=== PATIENT | female | born 1970 | race Caucasian/White ===

== ENCOUNTER → 2020-09-02 10:01 | Outpatient (CLI) | payer BC, SELFPAY ==
--- NOTE | ~2020-09-02 | XR_ITS ---
XR chest 2V DATE: 09/02/2020 10:16 INDICATION: Chest pain TECHNIQUE: PA and lateral views COMPARISON: 03/21/2018 PA and lateral chest FINDINGS: There is bilateral hyperinflation. No pulmonary infiltrate or consolidation, pleural effusi on or pulmonary vascular congestion or pneumothorax. Heart size is normal. No hilar or mediastinal en largement. Included skeletal structures are unremarkable. IMPRESSION: Bilateral hyperinflation; no active cardiopulmonary disease Reviewed, dictated and finalized at location A.
== END ==
PROVIDERS: PCP Family Medicine; Visit Provider Physician Assistant
DX: R07.9 Chest pain, unspecified (principal); R91.8 Other nonspecific abnormal finding of lung field
CPT/HCPCS: 71046

== ENCOUNTER 2020-10-21 07:59 | Outpatient (CLI) | payer BC, SELFPAY ==
--- NOTE | ~2020-10-21 | MM_ITS ---
EXAMINATION: MM screening [facility] BI w [facility] HISTORY: Screening mammogram TECHNIQUE: Craniocaudal and mediolateral oblique 3-D tomosynthesis images were obtained and synthetic 2-D images were generated. CAD analysis was submitted and interpreted. COMPARISON: 04/22/2018, 07/11/2016, 05/05/2014 BREAST PARENCHYMAL COMPOSITION: The breasts are heterogeneously dense, which may obscure small masses . FINDINGS: There is continued interval decrease in size of a subareolar cyst in the left breast. There is no evidence of suspicious mass, calcification, or architectural distortion to suggest malignancy in either breast. There has been no suspicious interval change. IMPRESSION: 1. No mammographic evidence of malignancy. 2. Recommend routine screening mammography in one year. BI-RADS Category 2: Benign finding(s). Reviewed, dictated and finalized at location A. [employer]
== END 2020-10-21 08:00 | disposition home or self-care (01) ==
LOC: ANHIMG 08:02
PROVIDERS: PCP Family Medicine; Visit Provider Obstetrics & Gynecology
DX: Z12.31 Encounter for screening mammogram for malignant neoplasm of breast (principal)
CPT/HCPCS: 77063; 77067

== ENCOUNTER 2020-10-24 10:33 | Outpatient (NON) | payer BC, SELFPAY ==
[2020-10-24 22:00] LABS: SARS-CoV-2 RNA PCR Positive
== END 2020-10-24 10:34 ==
PROVIDERS: PCP Family Medicine; Visit Provider Physician Assistant
DX: R09.81 Nasal congestion (principal); U07.1 COVID-19
CPT/HCPCS: 87635; C9803; U0003